=== PATIENT | male | born 1980 | race Two or more races ===

== ENCOUNTER 2023-09-24 01:40 | Emergency (ER) | payer OTHER ==
[~2023-09-24] VITALS: Ht 182.9 cm; Wt 95.3 kg
[2023-09-24] MEDS ORDERED: NALOXONE HCL 0.4 MG/ML AMPUL IV STA (02:12)
[2023-09-24] MEDS ORDERED: FLUMAZENIL 0.5 MG/5 ML ML IV STA (02:12)
[2023-09-24] MEDS ORDERED: RINGERS SOLUTION,LACTATED 1,000 ML IV STA (02:12)
[2023-09-24] MEDS ORDERED: FLUMAZENIL 0.5 MG/5 ML ML IV ONE (02:17)
[2023-09-24] MEDS ORDERED: NALOXONE HCL 0.4 MG/ML AMPUL ONE (02:17)
[2023-09-24 02:32] LABS: HEMATOCRIT 46.6 % (39.0-48.0); HEMOGLOBIN 15.7 g/dL (13-16.00); MEAN CELL VOLUME 89.9 fL (80.0-100.00); MEAN CORPUSCULAR HEMOGLOBIN 30.3 pg (27.00-32.0); MEAN CORPUSCULAR HGB CONC 33.7 g/dl (32.0-36.0); PLATELET COUNT 259 K/uL (150-450); RED BLOOD COUNT 5.18 M/uL (4.00-6.00)
[2023-09-24 03:02] LABS: URINE APPEARANCE Clear; URINE BILIRRUBIN Negative (NEGATIVE); URINE BLOOD Negative; URINE COLOR Yellow; URINE GLUCOSE Negative (NEGATIVE); URINE LEUKOCYTE Negative; URINE NITRATE Negative; URINE PROTEIN Negative (NEGATIVE); URINE UROBILINOGEN 0.2 E.U./dl
[2023-09-24 03:06] LABS: URINE BACTERIA 86.9 uL (0.0-1933); URINE EPITHELIAL CELLS 8.4 uL (0.0-38.8); URINE RBC 3.2 uL (0.0-20.8); URINE WBC 6.6 uL (0.0-23.2)
[2023-09-24 03:10] LABS: ALBUMIN 4.1 gm/dL (3.4-5.0); BILIRUBIN TOTAL 0.41 mg/dL (0.3-1.2); CALCIUM 9.5 mg/dL (8.5-10.1); CREATININE SERUM 1.37 mg/dL (0.70-1.30); GFR 56.19; GLOBULINA 3.6 G/DL (2.4-3.5); POTASSIUM 4.63 mEq/L (3.5-5.1); TOTAL PROTEIN 7.7 gm/dL (6.4-8.2)
[2023-09-24 05:43] LABS: COCAINE POSITIVE (NEGATIVE); METHADONE NEGATIVE (NEGATIVE); OPIATES NEGATIVE (NEGATIVE); THC ( Cannabinoids) POSITIVE (NEGATIVE)
== END 2023-09-24 06:46 | disposition home or self-care (01) ==
LOC: ER 01:40
DX: F19.10 Other psychoactive substance abuse, uncomplicated (principal)